=== PATIENT | female | born 1970 | race Caucasian/White ===

== ENCOUNTER 2022-06-11 11:42 | Emergency (ER) | payer OTHER ==
[2022-06-11] MEDS ORDERED: Ibuprofen 800 MG Tab PO ONE (13:10)
== END 2022-06-11 13:36 | disposition home or self-care (01) ==
LOC: DL.ED 11:42
DX: S00.33XA Contusion of nose, initial encounter (principal); I10 Essential (primary) hypertension; E66.9 Obesity, unspecified; Z79.899 Other long term (current) drug therapy; Z68.42 Body mass index [BMI] 45.0-49.9, adult; Y04.0XXA Assault by unarmed brawl or fight, initial encounter
CPT/HCPCS: 70486; 99284; A9270

== ENCOUNTER 2022-12-09 07:18 | Day surgery (SDC) | payer OTHER ==
[~2022-12-09 07:18] MED LIST: Midazolam 1 MG/ML 2 ML SDV ONE; fentaNYL 100 MCG/2 ML SDV ONE
[2022-12-09] MEDS ORDERED: fentaNYL 100 MCG/2 ML SDV IV ONE ×3 (07:19→08:48)
[2022-12-09] MEDS ORDERED: Midazolam 1 MG/ML 2 ML SDV IV ONE ×3 (07:19→08:49)
[2022-12-09] MEDS ORDERED: Dextrose 5%-0.45% NaCl 1,000 ML IV SCH (08:00)
== END 2022-12-09 10:30 | disposition home or self-care (01) ==
LOC: DL.ENDO 07:18
PROVIDERS: ATTEND Internal Medicine Gastroenterology
DX: R10.12 Left upper quadrant pain (principal); E66.09 Other obesity due to excess calories; I10 Essential (primary) hypertension; Z88.2 Allergy status to sulfonamides; Z88.0 Allergy status to penicillin; Z68.42 Body mass index [BMI] 45.0-49.9, adult
CPT/HCPCS: 43239; 87077; J2250; J3010; J7042

== ENCOUNTER 2023-02-03 07:20 | Day surgery (SDC) | payer OTHER ==
[~2023-02-03 07:20] MED LIST changes: +Dextrose 5%-0.45% NaCl 1,000 ML IV SCH; -Midazolam 1 MG/ML 2 ML SDV ONE; +Sodium Chloride 0.9% 10 ML Syringe FLUSH PRN; +Sodium Chloride 0.9% 10 ML Syringe FLUSH SCH; -fentaNYL 100 MCG/2 ML SDV ONE
[2023-02-03] MEDS ORDERED: Midazolam 1 MG/ML 2 ML SDV IV ONE ×7 (07:21→08:44)
[2023-02-03] MEDS ORDERED: fentaNYL 100 MCG/2 ML SDV IVPUSH ONE (07:21)
[2023-02-03] MEDS ORDERED: Midazolam 1 MG/ML 2 ML SDV ONE (08:31)
[2023-02-03] MEDS ORDERED: fentaNYL 100 MCG/2 ML SDV ONE (08:32)
[2023-02-03] MEDS ORDERED: fentaNYL 100 MCG/2 ML SDV IV ONE ×5 (08:38→08:47)
== END 2023-02-03 10:15 | disposition home or self-care (01) ==
LOC: DL.ENDO 07:20
PROVIDERS: ATTEND Internal Medicine Gastroenterology
DX: R10.33 Periumbilical pain (principal); R10.12 Left upper quadrant pain; E66.09 Other obesity due to excess calories; I10 Essential (primary) hypertension; K57.30 Diverticulosis of large intestine without perforation or abscess without bleeding; K64.8 Other hemorrhoids; N28.1 Cyst of kidney, acquired; Z68.42 Body mass index [BMI] 45.0-49.9, adult
CPT/HCPCS: 45378; 81025; J2250; J3010; J7042

== ENCOUNTER 2025-04-01 16:57 | Emergency (ER) | payer OTHER ==
[2025-04-01 17:21] LABS: HEMOGLOBIN 14.9 g/dL (12.0-16.0); MEAN CORPUSCULAR HEMOGLOBIN 29.2 pg (27.0-34.0); MEAN CORPUSCULAR HGB CONC 33.1 g/dL (33.0-35.0); MEAN CORPUSCULAR VOLUME 88.2 fL (80-100); RED BLOOD CELL COUNT 5.1 10^6/uL (4.2-5.4)
[2025-04-01 17:44] LABS: ANION GAP 12.8 mEq/L (7-13); CALCIUM 9.8 mg/dL (8.5-10.1); CREATININE 0.91 mg/dL (0.55-1.02); EST CRCL DRUG DOSING (CG) 64.33 mL/min; POTASSIUM,K 3.8 mmol/L (3.5-5.1)
[2025-04-01] MEDS: GI Cocktail Oral Solution 30 ML PO ONE (17:48)
[2025-04-01] MEDS: Famotidine 20 MG Tab PO ONE (17:48)
[2025-04-01] MEDS: Lisinopril 20 MG Tab PO ONE (20:17)
== END 2025-04-01 20:34 | disposition home or self-care (01) ==
LOC: DL.ED 16:57
DX: I16.0 Hypertensive urgency (principal); K21.9 Gastro-esophageal reflux disease without esophagitis; R07.89 Other chest pain; E66.9 Obesity, unspecified; I10 Essential (primary) hypertension; Z86.16 Personal history of COVID-19; Z79.899 Other long term (current) drug therapy; Z88.0 Allergy status to penicillin; Z88.2 Allergy status to sulfonamides
CPT/HCPCS: 36415; 71046; 80048; 84484; 85027; 85379; 93005; 99285; A9270